=== PATIENT | female | born 1995 | race Caucasian/White ===

== ENCOUNTER 2022-06-10 10:16 | Emergency (ER) | payer BC ==
[2022-06-10 11:32] LABS: CORONAVIRUS COVID-19 NAA NEGATIVE (NEGATIVE); RESPIRATORY SYNCYTIAL VIR NAA NEGATIVE (NEGATIVE)
== END 2022-06-10 12:14 | disposition swing bed (61) ==
LOC: DL.ED 10:16
DX: O98.513 Other viral diseases complicating pregnancy, third trimester (principal); B34.9 Viral infection, unspecified; Z20.822 Contact with and (suspected) exposure to COVID-19; Z3A.38 38 weeks gestation of pregnancy
CPT/HCPCS: 0241U; 99284

== ENCOUNTER 2022-06-19 16:47 | Emergency (ER) | payer BC ==
[2022-06-19] MEDS: Sodium Chloride 0.9% 10 ML Syringe FLUSH PRN (17:47)
[2022-06-19] MEDS: Sodium Chloride 0.9% 1,000 ML IV ONE ×3 (17:47→19:32)
[2022-06-19 18:33] LABS: ANION GAP 15.2 mEq/L (7-13); CHLORIDE,CL 101 mmol/L (98-107); SODIUM,NA 136 mmol/L (136-145)
[2022-06-19 18:42] LABS: ESTIMATED GFR 105 mL/min (>=60)
[2022-06-19] MEDS ORDERED: Sodium Chloride 0.9% 10 ML Syringe FLUSH PRN (18:46)
[2022-06-19] MEDS: Ondansetron 4 MG/2 ML SDV IV ONE (18:49)
[2022-06-19] MEDS: HYDROmorphone 1 MG/ML Syringe IVPUSH ONE (18:50)
[2022-06-19] MEDS: Acetaminophen 500 MG Tab PO ONE (18:52)
[2022-06-19] MEDS: SODIUM CHLORIDE 0.9% IV ONE (18:56)
[2022-06-19] MEDS: GENTAMICIN IV ONE (18:56)
[2022-06-19] MEDS: Clindamycin in 0.9 % Sod Chlor 900 MG in Premix Bag 1 BAG IV ONE ×2 (19:31)
[2022-06-19] MEDS: Clindamycin Phosphate 900 MG in Sodium Chloride 0.9% 100 ML IV ONE (19:33)
[2022-06-19] MEDS: Ampicillin/Sulbactam Na 1.5 GM Vial IVPUSH ONE (19:49)
[2022-06-19 20:12] LABS: CORONAVIRUS COVID-19 NAA NEGATIVE (NEGATIVE); RESPIRATORY SYNCYTIAL VIR NAA NEGATIVE (NEGATIVE)
== END 2022-06-19 19:55 ==
LOC: DL.ED 16:47
DX: O86.12 Endometritis following delivery (principal); Z20.822 Contact with and (suspected) exposure to COVID-19
CPT/HCPCS: 0241U; 36415; 71045; 80053; 81001; 83605; 85025; 87040; 87077; 87086; 87088; 96365; 96367; 96375; 99285-25; A9270-GY; J0295; J1170; J1580; J2405; J3490; J7030